=== PATIENT | female | born 1950 | race Caucasian/White ===

== ENCOUNTER 2016-10-07 06:21 | Day surgery (SDC) | payer MEDICARE, OTHER ==
--- NOTE | ~2016-10-07 | EGD ---
EGD REPORT [facility] [address] [address] NAME: BRITTA FREEMAN : [birth year] STATUS : REG [facility] PAT#: [id number] AGE: 66 ADM/REG DATE : 10/07/16 MR#: [id number] REPORT SERV DATE: 10/07/16 DICTATED BY: GEN GRAHAM DATE: 10/07/16 REPORT STATUS : Draft TRANSCRIBED BY: [facility] DATE: 10/07/16 Endoscopy Center Patient Name: Britta Freeman Date of : 1950 Attending MD: GEN GRAHAM MD Procedure Date No Time: 10/07/2016 Procedure: Upper GI endoscopy Indications: Dysphagia, Follow-up of acute gastric ulcer Referring MD: Chra Woods Medicines: Monitored Anesthesia Care Complications: No immediate complications. Procedure: Pre-Anesthesia Assessment: - ASA Grade Assessment: III - A patient with severe systemic disease. After obtaining informed consent, the endoscope was passed under direct vision. Throughout the procedure, the patient's blood pressure, pulse, and oxygen saturations were monitored continuously. The GIF [id number] was introduced through the mouth, and advanced to the second part of duodenum. The upper GI endoscopy was accomplished without difficulty. The patient tolerated the procedure well. Findings: No endoscopic abnormality was evident in the esophagus to explain the patient's complaint of dysphagia. It was decided, however, to proceed with dilation of the entire esophagus. A guidewire was placed and the scope was withdrawn. Dilation was performed with a Savary dilator with mild resistance at 45 Fr and mild resistance at 48 Fr. Esophagitis had healed. S/P Anurag Fundiplication. Gastric ulcer had healed. The duodenal bulb and 2nd part of the duodenum were normal. Impression: - No endoscopic esophageal abnormality to explain patient's dysphagia. Esophagus dilated. Dilated. - Normal duodenal bulb and 2nd part of the duodenum. Recommendation: - Follow an antireflux regimen. - Patient has a contact number available for emergencies. The signs and symptoms of potential delayed complications were discussed with the patient. Return to normal activities tomorrow. Written discharge instructions were provided to the patient. - Continue present medications. - Patient has a contact number available for EGD REPORT [address] [address] NAME: BRITTA FREEMAN : [birth year] STATUS : REG [facility] PAT#: [id number] AGE: 66 ADM/REG DATE : 10/07/16 MR#: [id number] REPORT SERV DATE: 10/07/16 DICTATED BY: GEN GRAHAM DATE: 10/07/16 REPORT STATUS : Draft TRANSCRIBED BY: [employer] [facility] DATE: 10/07/16 emergencies. The signs and symptoms of potential delayed complications were discussed with the patient. Return to normal activities tomorrow. Written discharge instructions were provided to the patient. - Soft diet today. - Patient has a contact number available for emergencies. The signs and symptoms of potential delayed complications were discussed with the patient. Return to normal activities tomorrow. Written discharge instructions were provided to the patient. - Return to GI clinic PRN. Procedure Code(s): --- Professional --- 24492, Esophagogastroduodenoscopy, flexible, transoral; with insertion of guide wire followed by passage of dilator(s) through esophagus over guide wire Diagnosis Code(s): --- Professional --- R13.10, Dysphagia, unspecified K25.3, Acute gastric ulcer without hemorrhage or perforation CPT copyright 2013 [employer]. All rights reserved. The codes documented in this report are preliminary and upon mobile equipment operator review may be revised to meet current compliance requirements. GEN GRAHAM MD 10/07/2016 8:07 AM This report has been signed electronically. Number of Addenda: 0 Note Initiated On: 10/07/2016 7:41 AM Scope Withdrawal Time 0 hours 0 minutes 0 seconds [address] [place] [address]
[~2016-10-07 06:21] MED LIST: ABILIFY2 PO; ASAB PO; BIOTIN5 MG PO; CALTRA600D PO; CO Q-10100 MG PO; CYMBALTA60 PO; DHE1 PO; FISH-EPA1000 MG PO; FLEX PO; HCTZ25B PO; KAPIDEX60 MG PO; KLONO5 PO; LAMICTAL200 MG PO; LIOR10 PO; LOP25 PO; MIRALAXPKT PO; MOBIC15 MG PO; MULTIVIT/MIN PO; NEUR300 PO; NEXIUM40 PO; NORCO1 TA2 PO; NORCO1 TAB PO; NORV10 PO; NUVIGIL250 MG PO; REQUIP2 PO; SEVERAL VITS; SPIRO25 PO; SUCR PO; SYN075 PO; SYN88 PO; VALTREX5 PO; VIIBRYD20 MG PO; VITAMIN D31000 UNIT PO; VITAMINS PO; XALAT OPH; [UNRECOGNIZED DRUG - OTHER] PO; [UNRECOGNIZED DRUG - OTHER] PO
== END 2016-10-07 23:59 | disposition home or self-care (01) ==
LOC: DMU 06:21
PROVIDERS: Internal Medicine Gastroenterology
PROC: 0D758ZZ Dilation of Esophagus, Via Natural or Artificial Opening Endoscopic (ICD-10-PCS; principal; 2016-10-07 08:00)
DX: Z09 Encounter for follow-up examination after completed treatment for conditions other than malignant neoplasm (principal); I25.10 Atherosclerotic heart disease of native coronary artery without angina pectoris; I25.2 Old myocardial infarction; I10 Essential (primary) hypertension; G47.33 Obstructive sleep apnea (adult) (pediatric); G89.29 Other chronic pain; F41.9 Anxiety disorder, unspecified; F32.9 Major depressive disorder, single episode, unspecified; Z95.5 Presence of coronary angioplasty implant and graft; Z95.0 Presence of cardiac pacemaker; Z79.891 Long term (current) use of opiate analgesic; Z79.82 Long term (current) use of aspirin; Z79.899 Other long term (current) drug therapy